=== PATIENT | male | born 1975 | race Caucasian/White ===

== ENCOUNTER 2017-08-20 10:47 | Emergency (ER) | payer OTHER ==
[2017-08-20 10:56] VITALS: BP 111/77; PULSE 71; TEMP 97.9; BMI 26.6
[2017-08-20] MEDS ORDERED: ONDANSETRON 4 MG/2 ML VIAL IVPUSH ONE (12:38)
[2017-08-20] MEDS ORDERED: SODIUM CHLORIDE 0.9% 1000 ML INFUS.BAG IV ONE (12:38)
[2017-08-20] MEDS ORDERED: FAMOTIDINE 20 MG/50 ML IVPB 20 MG/50 ML MG IVPB ONE ×2 (12:38→12:57)
--- NOTE | 2017-08-20 12:49 | PDOC ---
Attending Attestation - Resident Resident Name: Dmitriy Velez - ED Attending Attestation I have performed the following: I have examined & evaluated the patient, The case was reviewed & discussed with the resident, I agree w/resident's findings & plan, Exceptions are as noted - HPI HPI: 08/20/17 12:45 42y M no known pmhx, presents with 3-4 days of epigastric pain that is sharp, intermittent, lasting for 3-4 minutes, non positional, not associated with eating. assocated with nausea w/o vomiting, no associated cp, sob, pelayo, diarrhea , dysuria, leg swelling, hemoptysis, back pain. GENERAL: The patient is awake, alert, and fully oriented, Nontoxic - in no acute distress. HEAD: Normocephalic, atraumatic. EYES: extraocular movements intact, sclera anicteric, conjunctiva clear. ENT: Normal voice, Moist mucous membranes. NECK: Normal range of motion, supple LUNGS: Breath sounds equal, clear to auscultation bilaterally. No wheezes, no rhonchi, no rales. HEART: Regular rate and rhythm, normal S1 and S2 without murmur, rub or gallop. ABDOMEN: Soft, nontender, normoactive bowel sounds. No guarding, no rebound. No CVA tenderness EXTREMITIES: Normal range of motion, no edema. Negative Homans sign NEUROLOGICAL: No facial assymetry, Normal speech, normal gait, moving all 4 cavities spontaneously and symmetrically PSYCH: Normal mood, normal affect. SKIN: Warm, Dry, normal turgor, Differential for patient's symptoms includes possible pancreatitis, gastritis, gallstones. Will check blood work will give Pepcid, fluids consider possible ultrasound will reassess - Physicial Exam PE: 08/22/17 18:47 see above - Medical Decision Making 08/20/17 13:34 The patient's labs were reviewed and they're unremarkable The patient is feeling improved. Upon further talking with the patient the patient states that he does eat a diet with a lot of spicy foods, sour / acidic foods - suspect that the patient' s symptoms be secondary to gastritis/GERD, we'll give the patient prescription for for zantac will give pt PMD fu I discussed the physical exam findings, ancillary test results and final diagnoses with the patient. I answered all of the patient's questions. The patient was satisfied with the care received and felt comfortable with the discharge plan and treatment plan. The patient will call their primary care physician within 24 hours to arrange follow-up and will return to the Emergency Department with any new, persistent or worsening symptoms. Heart Score/ECG Review - ECG Impressions Comment:: 08/20/17 14:38 Twelve-lead EKG was performed and reviewed by me. There is normal sinus rhythm with a rate of 57 The axis is normal. The intervals are normal. There is normal R wave progression There are no ST or T wave abnormalities. Impression: Sinus bradycardia
[2017-08-20] MEDS ORDERED: ONDANSETRON 4 MG/2 ML VIAL ONE (12:50)
[2017-08-20 12:54] LABS: BASO % 0.3 % (0-2.0); EOS % 1.8 % (0-4.5); HEMOGLOBIN 15.1 GM/dL (11.7-16.9); LYMPH % 18.5 % (8-40); MCH 28.7 pg (25.7-33.7); MCHC 33.5 g/dl (32.0-35.9); MEAN CELL VOLUME 85.7 fl (80-96); MONO % 8.6 % (3.8-10.2); NEUT % 70.8 % (42.8-82.8); PLATELET COUNT 205 K/MM3 (134-434); RBC 5.25 M/mm3 (4.00-5.60); RDW 14.2 % (11.9-15.9); WHITE BLOOD COUNT 6.6 K/mm3 (4.0-10.0)
--- NOTE | 2017-08-20 13:03 | PDOC ---
History of Present Illness - General Chief Complaint: Pain Stated Complaint: ABD PAIN Time Seen by Provider: 08/20/17 12:11 History Source: Patient Exam Limitations: Language Barrier ([employer] #[id number]) - History of Present Illness Initial Comments: 08/20/17 12:57 The patient is a 42M with no PMH (does not follow with PCP) who presents to the ER with abdominal pain. The patient states that he has had sharp, nonradiating, intermittent epigastric pain for 3-4 days not associated with spicy foods or alcohol. The patient states he has been mildly nauseous but has not vomited and does not have any diarrhea. He denies any fever, chills, SOB, CP. Past History - Past Medical History Allergies/Adverse Reactions: Allergies Allergy/AdvReac Type Severity Reaction Status Date / Time No Known Allergies Allergy Verified 08/20/17 10:53 Home Medications: Ambulatory Orders Famotidine [Pepcid -] 20 mg PO BID #14 tablet 08/20/17 COPD: No - Suicide/Smoking/Psychosocial Hx Smoking History: Never smoked Have you smoked in the past 12 months: No Information on smoking cessation initiated: No Hx Alcohol Use: No Drug/Substance Use Hx: No Substance Use Type: None Review of Systems - Review of Systems Able to Perform ROS?: Yes Comments:: 08/20/17 13:02 GENERAL/CONSTITUTIONAL: No fever or chills. No weakness. HEAD, EYES, EARS, NOSE AND THROAT: No change in vision. No ear pain or discharge. No sore throat. CARDIOVASCULAR: No chest pain, palpitations, or lightheadedness. RESPIRATORY: No cough, wheezing, shortness of breath, or hemoptysis. GASTROINTESTINAL: Positive for nausea and epigastric pain. No vomiting, diarrhea , or constipation. GENITOURINARY: No dysuria, frequency, hematuria, or change in urination. MUSCULOSKELETAL: No joint or muscle swelling or pain. No neck or back pain. SKIN: No rash or lesions. NEUROLOGIC: No headache, numbness, tingling, weakness, loss of consciousness, or change in strength/sensation. ENDOCRINE: No increased thirst. No abnormal weight change. HEMATOLOGIC/LYMPHATIC: No anemia, easy bleeding, or history of blood clots. ALLERGIC/IMMUNOLOGIC: No hives or skin allergy. Is the patient limited Maltese proficient: No *Physical Exam - Vital Signs Last Vital Signs Temp Pulse Resp BP Pulse Ox 97.9 F 71 18 111/77 100 08/20/17 10:53 08/20/17 10:53 08/20/17 10:53 08/20/17 10:53 08/20/17 10:53 - Physical Exam Comments: 08/20/17 13:02 GENERAL: Well developed, well nourished. Awake and alert. No acute distress. HEENT: Normocephalic, atraumatic. Hearing grossly normal. Moist mucous membranes. PERRLA, EOMI. No conjunctival pallor. Sclera are non-icteric. NECK: Supple. Full ROM. CARDIOVASCULAR: Regular rate and rhythm. No murmurs, rubs, or gallops. PULMONARY: No evidence of respiratory distress. Lungs clear to auscultation bilaterally. No wheezing, rales or rhonchi. ABDOMINAL: Soft. Non-tender. Non-distended. No rebound or guarding. GENITOURINARY: No CVA tenderness bilaterally. MUSCULOSKELETAL: Normal range of motion at all joints. No bony deformities or tenderness. EXTREMITIES: No cyanosis. No clubbing. No edema. No calf tenderness or swelling. SKIN: Warm and dry. Normal capillary refill. No rashes. No jaundice. NEUROLOGICAL: Alert, awake, appropriate. Cranial nerves 2-12 intact. Normal speech. Gait is normal without ataxia. PSYCHIATRIC: Cooperative. Good eye contact. Appropriate mood and affect. Moderate Sedation - Procedure Monitoring Vital Signs: Vital Signs Temp Pulse Resp BP Pulse Ox 97.9 F 71 18 111/77 100 08/20/17 10:53 08/20/17 10:53 08/20/17 10:53 08/20/17 10:53 08/20/17 10:53 ED Treatment Course - LABORATORY CBC & Chemistry Diagram: 08/20/17 12:36 08/20/17 12:36 Medical Decision Making - Medical Decision Making 08/20/17 13:03 The patient is a 42M with no PMH who presents to the ER with epigastric pain. I am concerned for pancreatitis, PUD, hepatobiliary pathology. I am less concerned for ACS as the patient has no CP or SOB. Will r/o with EKG. Pending CBC, CMP, lipase and EKG. 08/20/17 14:20 Labs and EKG negative. Pt states he feels much better. Will d/c home with PCP f/ u. Instructions given with [employer] # [id number]. *DC/Admit/Observation/Transfer Diagnosis at time of Disposition: Abdominal pain Qualifiers: Abdominal location: epigastric Qualified Code(s): R10.13 - Epigastric pain - Discharge Dispostion Disposition: HOME Condition at time of disposition: Stable Decision to Admit order: No - Prescriptions Prescriptions: Famotidine [Pepcid -] 20 mg PO BID #14 tablet - Referrals Referrals: Ignacio Cummings MD [Staff Physician] - Kanchan Redding MD [Staff Physician] - - Patient Instructions Printed Discharge Instructions: DI for Epigastric Pain Additional Instructions: Please follow up with your primary care physician in 2-3 days. Please return to the ER if you have any signs or symptoms of chest pain, shortness of breath, uncontrollable fever, chills, nausea, vomiting, numbness, tingling, or weakness in any part of your body, changes in vision, or slurred speech. Please return to the ER if symptoms persist, worsen, or new symptoms arise. Por favor, dwaine un seguimiento con clay mdico de atencin primaria en 2-3 maier. Por favor regrese a la destin de emergencia si tiene signos o sntomas de dolor en el pecho, dificultad para respirar, fiebre incontrolable, escalofros, n useas, vmitos, entumecimiento, hormigueo o debilidad en cualquier parte de clay cuerpo, cambios en la visin o dificultad para hablar. Por favor regrese a la destin de emergencias si los sntomas persisten, empeoran o surgen nuevos sntomas. - Post Discharge Activity
[2017-08-20 13:23] LABS: ALBUMIN 3.5 g/dl (3.4-5.0); ANION GAP 4 (8-16); BLOOD UREA NITROGEN 7 mg/dL (7-18); CALCIUM 8.5 mg/dL (8.5-10.1); CHLORIDE 107 mmol/L (98-107); CO2 27 mmol/L (21-32); CREATININE 0.7 mg/dL (0.7-1.3); GLUCOSE,RANDOM 93 mg/dL (74-106); LIPASE 175 U/L (73-393); POTASSIUM 3.9 mmol/L (3.5-5.1); SGOT/AST 25 U/L (15-37); SGPT/ALT 32 U/L (12-78); SODIUM 138 mmol/L (136-145); TOT PROT 7.5 g/dl (6.4-8.2)
[2017-08-20 13:26] LABS: ALK PHOS 92 U/L (45-117); BILIRUBIN,TOTAL 1.2 mg/dL (0.2-1.0)
--- NOTE | 2017-08-20 16:10 | EKG ---
Test Reason : Blood Pressure : / mmHG Vent. Rate : 057 BPM Atrial Rate : 057 BPM P-R Int : 144 ms QRS Dur : 092 ms QT Int : 422 ms P-R-T Axes : 035 030 037 degrees QTc Int : 410 ms SINUS BRADYCARDIA OTHERWISE NORMAL ECG NO PREVIOUS ECGS AVAILABLE Confirmed by MD Jadon, Víctor ([id number]) on 08/20/2017 4:10:10 PM Referred By: Confirmed By:Víctor Diop MD
== END 2017-08-20 15:39 | disposition home or self-care (01) ==
LOC: JER 10:47
DX: R10.13 Epigastric pain (principal)
CPT/HCPCS: 36415; 80053; 83690; 85025; 93005; 93010; 99284-25; J7030

== ENCOUNTER 2023-04-30 11:33 | Emergency (ER) | payer OTHER ==
[2023-04-30 11:41] VITALS: BP 128/78; PULSE 60; RESP 18; TEMP 98.6; BMI 29.2
[2023-04-30] MEDS ORDERED: ACETAMINOPHEN 500 MG TABLET (FP) PO ONE (12:49)
[2023-04-30] MEDS ORDERED: LIDOCAINE 5% TOPICAL PATCH TP ONE (12:49)
[2023-04-30] MEDS ORDERED: LIDOCAINE 4% PATCH TP ONE (12:56)
[2023-04-30] MEDS ORDERED: ACETAMINOPHEN 325 MG TABLET (FP) ONE (12:56)
[2023-04-30] MEDS ORDERED: LIDOCAINE PATCH REMOVAL MC ONE (22:00)
== END 2023-04-30 15:39 | disposition home or self-care (01) ==
LOC: JER 11:33
DX: M25.512 Pain in left shoulder (principal); W01.0XXA Fall on same level from slipping, tripping and stumbling without subsequent striking against object, initial encounter; Y93.89 Activity, other specified; Y92.009 Unspecified place in unspecified non-institutional (private) residence as the place of occurrence of the external cause
CPT/HCPCS: 73030-TC-LT-FY; 99283-25

== ENCOUNTER 2023-11-26 08:34 | Emergency (ER) | payer OTHER ==
[2023-11-26 08:44] VITALS: RESP 18; TEMP 97.1; BMI 24.1
[2023-11-26] MEDS ORDERED: LIDOCAINE 4% PATCH TP ONE (08:57)
[2023-11-26] MEDS ORDERED: ACETAMINOPHEN 500 MG TABLET (FP) ONE (08:58)
[2023-11-26] MEDS: LIDOCAINE 4% PATCH TP ONE (09:07)
[2023-11-26] MEDS: ACETAMINOPHEN 500 MG TABLET (FP) PO ONE (09:08)
[2023-11-26] MEDS ORDERED: HYDROmorphone HCL CARPU-JECT 2 MG/1 ML DISP.SYRIN ONE (10:13)
[2023-11-26] MEDS: HYDROmorphone HCl 2 MG/ML VIAL IVPUSH ONE (10:20)
[2023-11-26 10:36] LABS: BASO % 0.5 % (0-2.0); EOS % 2.7 % (0-4.5); HEMATOCRIT 42.1 % (35.4-49); HEMOGLOBIN 14.4 GM/dL (11.7-16.9); MCH 29.7 pg (25.7-33.7); MCHC 34.2 g/dl (32.0-35.9); MEAN CELL VOLUME 86.8 fl (80-96); MEAN PLT VOLUME 9.5 fl (7.5-11.1); MONO % 7.8 % (3.8-10.2); PLATELET COUNT 141 10^3/uL (134-434); RBC 4.85 M/mm3 (4.00-5.60); RDW 13.9 % (11.9-15.9)
[2023-11-26 10:50] LABS: POTASSIUM 4.1 mmol/L (3.5-5.1)
[2023-11-26 10:52] LABS: ALBUMIN 3.6 g/dl (3.4-5.0); CALCIUM 8.7 mg/dL (8.5-10.1)
[2023-11-26 10:53] LABS: BLOOD UREA NITROGEN 16.6 mg/dL (7-18)
[2023-11-26 10:56] LABS: CREATININE 0.8 mg/dL (0.55-1.3)
[2023-11-26 10:57] LABS: BILIRUBIN,TOTAL 0.5 mg/dL (0.2-1); TOT PROT 7.1 g/dl (6.4-8.2)
[2023-11-26 13:31] VITALS: BP 104/63; PULSE 54
[2023-11-26] MEDS ORDERED: LIDOCAINE PATCH REMOVAL MC ONE (22:00)
== END 2023-11-26 13:34 | disposition home or self-care (01) ==
LOC: JERFT 08:34
PROC: 3E033NZ Introduction of Analgesics, Hypnotics, Sedatives into Peripheral Vein, Percutaneous Approach (ICD-10-PCS; principal; 2023-11-26)
DX: R07.89 Other chest pain (principal); R10.9 Unspecified abdominal pain; W01.198A Fall on same level from slipping, tripping and stumbling with subsequent striking against other object, initial encounter; Y93.G3 Activity, cooking and baking
CPT/HCPCS: 36415; 71101-TC-RT-FY; 74174-TC; 80053; 85025; 99285-25; Q9967